=== PATIENT | female | born 1950 | race Two or more races ===

== ENCOUNTER 2017-08-01 09:29 | Inpatient (IN) | payer MEDICARE, OTHER ==
[~2017-08-01] VITALS: Ht 165.1 cm; Wt 67.1 kg
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
--- NOTE | 2017-08-01 09:56 | NUR ---
CALL FROM ROCK AREVALO,[phone]
[2017-08-01] MEDS ORDERED: IV NS 0.9% 1,000 ML BAG IV ONE (10:00)
[2017-08-01 10:02] LABS: BASOPHILS % (AUTO) 0.8 % (0.0-2.0); EOSINOPHILS % (AUTO) 1.8 % (0.0-6.0); HEMATOCRIT 42 % (33-45); HEMOGLOBIN 14.2 g/dL (11.5-14.8); LYMPHOCYTES # (AUTO) 2.1 /CMM (0.8-4.8); LYMPHOCYTES % (AUTO) 37.7 % (20.0-44.0); MEAN CORPUSCULAR HGB CONC 34 g/dl (31.0-36.0); MEAN CORPUSCULAR VOLUME 89 fL (82-100); MONOCYTES # (AUTO) 0.3 /CMM (0.1-1.30); MONOCYTES % (AUTO) 6.2 % (2.0-12.0); NEUTROPHILS # (AUTO) 3.1 /CMM (1.8-8.9); NEUTROPHILS % (AUTO) 53.5 % (43.0-81.0); PLATELET COUNT (AUTO) 238 /CMM (150-450); RDW COEFFICIENT OF VARIATION 13.1 (11.5-15.0); RED BLOOD CELL COUNT(AUTO) 4.76 MIL/uL (4.0-5.2); WHITE BLOOD COUNT (AUTO) 5.6 K/uL (4.3-11.0)
--- NOTE | 2017-08-01 10:04 | NUR ---
ROCK ,ROOMMATE, CALLED, LAST SEEN NORMAL AT 1600 YESTERDAY, STS HE HEARD KNOCKING ON THE WALL AT 0800 AND WHEN HE WENT TO CHECK, SHE WAS ON THE FLOOR. WHEN HE ASKED HER IF HE SHOULD CALL 911, SHE WAS STILL ABLE TO SAY NO THUS HE WAITED HE SAID THINKING SHE WOULD GET BETTER.
[2017-08-01 10:13] LABS: CALCIUM, SERUM 8.6 mg/dL (8.5-10.1); CARBON DIOXIDE 25 mmol/L (21-32); CHLORIDE 103 mmol/L (98-107); CREATININE 0.8 mg/dL (0.6-1.3); GLUCOSE 99 mg/dL (74-106); POTASSIUM 3.8 mmol/L (3.5-5.1); SODIUM SERUM 137 mmol/L (136-145); UREA NITROGEN, BLOOD 10 mg/dL (7-18)
[2017-08-01 10:16] LABS: INR 0.85 (0.85-1.15)
[2017-08-01 10:19] LABS: ACETAMINOPHEN 0 ug/ml (10-30); ALANINE AMINOTRANSFERASE 30 U/L (12-78); ALBUMIN 3.8 g/dL (3.4-5.0); ALCOHOL, BLOOD < 3 mg/dL (0-0); ASPARTATE AMINOTRANSFERASE 24 U/L (15-37); BILIRUBIN,DIRECT 0.2 mg/dL (0.0-0.2); BILIRUBIN,TOTAL 0.6 mg/dL (0.2-1.0); SALICYLATE 0.7 mg/dL (2.8-20.0); TOTAL PROTEIN, SERUM 8.1 g/dL (6.4-8.2)
[2017-08-01] MEDS ORDERED: ONDANSETRON HCL/PF 4 MG/2 ML VIAL ONE (10:20)
--- NOTE | 2017-08-01 10:20 | NUR ---
PATIENT VOMITED AT BS, ER MD MADE AWARE. IVP ZOFRAN 4MG GIVEN PER DR LUCIA ORDER (VERBAL ORDER)
--- NOTE | 2017-08-01 10:21 | NUR ---
PATIENT TRANSPORTED FOR CT HEAD.
[2017-08-01 10:28] LABS: APPEARANCE,URINE Clear (CLEAR); BILIRUBIN,URINE Negative (NEGATIVE); BLOOD, URINE Trace-lysed Ery/uL (NEGATIVE); COLOR,URINE Yellow (YELLOW); KETONES,URINE Negative (NEGATIVE); LEUKOCYTE ESTERASE ,URINE Negative (NEGATIVE); NITRITE, URINE Negative (NEGATIVE); PH,URINE 8.5 (5.0-8.0); PROTEIN,URINE Negative (NEGATIVE); UGLUCOSE Negative (NEGATIVE); UROBILINOGEN,URINE 0.2 EU/dL (0.2)
[2017-08-01] MEDS ORDERED: MIDAZOLAM HCL 2 MG/2ML VIAL ONE (10:28)
[2017-08-01 10:34] LABS: SERUM AMMONIA < 10 umol/L (11-32)
[2017-08-01 10:35] LABS: THYROID STIMULATING HORMONE 2.916 uIU/mL (0.358-3.74)
[2017-08-01 10:40] LABS: BACTERIA,URINE Rare /HPF (None Seen); RBC,URINE 0-2 /HPF (0-2); SQUAMOUS EPITHELIAL CELL,UR Rare /HPF (None Seen); WBC,URINE 0-2 /HPF (0-3)
--- NOTE | 2017-08-01 10:45 | NUR ---
PATIENT IS BACK FROM [facility]IA [place].
[2017-08-01 10:50] LABS: ALKALINE PHOSPHATASE 85 U/L (46-116)
[2017-08-01] MEDS ORDERED: ONDANSETRON HCL/PF 4 MG/2 ML VIAL IV ONE (11:00)
[2017-08-01] MEDS ORDERED: MIDAZOLAM HCL 2 MG/2ML VIAL IV ONE (11:00)
--- NOTE | 2017-08-01 11:05 | NUR ---
PATIENT IS MORE AWAKE BUT CAN'T RECALL ANYTHING. DR LUCIA MADE AWARE.
--- NOTE | 2017-08-01 11:28 | NUR ---
CALLED [employer] HOUSE SITTER WAS PAGED.
--- NOTE | 2017-08-01 12:14 | NUR ---
TEXTED DR. SOLOMON FOR MRI APPROVAL.
--- NOTE | 2017-08-01 12:15 | NUR ---
TEXTED BACK. ON HOLD FOR NOW ,HE WILL LET US KNOW.
--- NOTE | 2017-08-01 12:33 | NUR ---
REPORT GIVEN TO BART NORTON FOR [facility] TELE [phone]
--- NOTE | 2017-08-01 12:40 | NUR ---
DR CAMPA CALLED, ON THE PHONE WITH DR HOLLIDAY
--- NOTE | 2017-08-01 12:44 | NUR ---
CX MRI PER DR. SOLOMON
[2017-08-01] MEDS ORDERED: CETI-102 PO (12:59)
[2017-08-01] MEDS ORDERED: CHLO25TA2 PO (12:59)
[2017-08-01] MEDS ORDERED: OMEP40CA37 PO (12:59)
[2017-08-01] MEDS ORDERED: DICL75TA5 PO (12:59)
[2017-08-01] MEDS ORDERED: LACO200T2 PO (12:59)
[2017-08-01] MEDS ORDERED: AMLO10TA6 PO (12:59)
[2017-08-01] MEDS ORDERED: LAMO100T PO (12:59)
[2017-08-01] MEDS ORDERED: PANT40TA4 PO (12:59)
--- NOTE | 2017-08-01 13:15 | NUR ---
MS RN ADMITTING NOTES Patient arrived on MS-3W unit AAOx3, breathing on RA with no SOB or any signs/Sx of acute distress. Patient still complains of dizziness, but is otherwise resting comfortably in bed. Vital signs WNL. Peripheral IV 20g in left wrist. Patient on tele-monitor in NSR. Provided patient with orientation to room and unit. Patient has son at bedside. Bed is in low/locked position, two side rails up, call coffman within reach. Will continue to monitor.
[2017-08-01] MEDS ORDERED: MAGNESIUM HYDROXIDE 30 ML UDC PO PRN (14:00)
[2017-08-01] MEDS ORDERED: ONDANSETRON HCL/PF 4 MG/2 ML VIAL IVP PRN (14:00)
[2017-08-01] MEDS ORDERED: Z GUARD REMEDY 2 OZ OINT TP PRN (14:00)
[2017-08-01] MEDS ORDERED: MAG HYDROX/AL HYDROX/SIMETH 30 ML UDC PO PRN (14:00)
--- NOTE | 2017-08-01 14:00 | NUR ---
MS RN NOTE Patient seen by Dr. Gupta at bedside. Evaluated, orders noted and carried out.
[2017-08-01] MEDS: ACETAMINOPHEN 325 MG TABLET PO PRN (15:15)
[2017-08-01 16:00] VITALS: BP 122/75
[2017-08-01] MEDS: LamoTRIgine 100 MG TABLET PO SCH (17:15)
--- NOTE | 2017-08-01 18:17 | NUR ---
MS RN CLOSING NOTES Patient is resting comfortably in bed, breathing on RA, in no acute distress. Patient remains AAOx4. Vital signs WNL. Will check orthostatic BP as needed per Dr. Gupta. Marie catheter was seen leaking, and patient asked for it to be removed; obtained order for FC removal and removed before end of shift. Total output during shift was 3000 ml. Bedside commode next to patient. All patient needs and physician orders carried out. Patient care to be endorsed to shift mgr nurse.
--- NOTE | 2017-08-01 19:20 | NUR ---
SPECIAL SERVICES SUPERVISOR OPENING NOTES RECEIVED PT LAYING IN BED WITH HOB ELEVATED. ALERT, AWAKE AND RESPONSIVE. RESPIRATIONS ARE EVEN AND UNLABORED, NOT IN ANY ACUTE DISTRESS NOTED. DENIES ANY SOB, CHEST PAIN, N/V. IV SITE INTACT, NO INFILTRATION NOTED. DRESSING KEPT CLEAN AND DRY. SAFETY MEASURES ARE IN PLACE. INSTRUCTED PT TO USE CALL LIGHT WHEN ASSISTANCE IS NEEDED, CALL LIGHT IS LEFT WITHIN REACH. WILL CONTINUE TO MONITOR THROUGHOUT SHIFT FOR CONTINUITY OF CARE.
[2017-08-01 20:00] VITALS: BP 138/74
[2017-08-01] MEDS: ZOLPIDEM TARTRATE 5 MG TABLET PO PRN (20:51)
[2017-08-02] VITALS: BP 108/69
[2017-08-02] MEDS: ACETAMINOPHEN 325 MG TABLET PO PRN (02:46)
[2017-08-02 04:00] VITALS: BP 123/73
[2017-08-02 06:38] LABS: BASOPHILS % (AUTO) 0.7 % (0.0-2.0); EOSINOPHILS % (AUTO) 3.5 % (0.0-6.0); HEMATOCRIT 39 % (33-45); HEMOGLOBIN 13.1 g/dL (11.5-14.8); LYMPHOCYTES # (AUTO) 2.8 /CMM (0.8-4.8); LYMPHOCYTES % (AUTO) 49.7 % (20.0-44.0); MEAN CORPUSCULAR HGB CONC 34 g/dl (31.0-36.0); MEAN CORPUSCULAR VOLUME 89 fL (82-100); MONOCYTES # (AUTO) 0.4 /CMM (0.1-1.30); MONOCYTES % (AUTO) 6.7 % (2.0-12.0); NEUTROPHILS # (AUTO) 2.2 /CMM (1.8-8.9); NEUTROPHILS % (AUTO) 39.4 % (43.0-81.0); PLATELET COUNT (AUTO) 246 /CMM (150-450); RDW COEFFICIENT OF VARIATION 14.4 (11.5-15.0); RED BLOOD CELL COUNT(AUTO) 4.31 MIL/uL (4.0-5.2); WHITE BLOOD COUNT (AUTO) 5.7 K/uL (4.3-11.0)
[2017-08-02 06:46] LABS: CALCIUM, SERUM 8.3 mg/dL (8.5-10.1); CREATININE 0.7 mg/dL (0.6-1.3); MAGNESIUM 2.3 mg/dL (1.8-2.4); PHOSPHORUS 3.7 mg/dL (2.5-4.9); POTASSIUM 3.8 mmol/L (3.5-5.1)
--- NOTE | 2017-08-02 06:55 | NUR ---
FIRE SAFETY INSPECTOR CLOSING NOTES ALL DUE MEDS GIVEN, NEEDS MET AND RENDERED. AWAKE AND RESPONSIVE. RESPIRATIONS ARE EVEN AND UNLABORED, NOT IN ANY ACUTE DISTRESS NOTED. DENIES ANY PAIN, SOB, N/V. IV SITE INTACT, NO INFILTRATION NOTED. DRESSING KEPT CLEAN AND DRY. SAFETY MEASURES ARE IN PLACE. REMINDED PT TO USE CALL LIGHT WHEN ASSISTANCE IS NEEDED, CALL LIGHT IS LEFT WITHIN REACH. WILL ENDORSE TO NEXT SHIFT FOR CONTINUITY OF CARE.
--- NOTE | 2017-08-02 07:00 | NUR ---
REPORT RECEIVED AT THE BEDSIDE. PATIENT IS RESTING COMFORTABLY IN BED. NO SOB OR DISTRESS NOTED AT THIS TIME. PATIENT DENIES PAIN. BED IN A LOW POSITION, CALL LIGHT WITHIN REACH, FAMILY IS AT THE BEDSIDE. WILL MONITOR. Addendum: 08/02/17 at 0749 by KELLEE RAHMAN RN HEART RATE SR AT 65
[2017-08-02 08:00] VITALS: BP 114/79
[2017-08-02] MEDS: PANTOPRAZOLE 40 MG TABLET.DR PO SCH (08:08)
[2017-08-02] MEDS: cetrizine 10 MG TABLET PO SCH (08:08)
[2017-08-02] MEDS: LamoTRIgine 100 MG TABLET PO SCH ×2 (08:08→16:07)
[2017-08-02] MEDS: AMLODIPINE BESYLATE 10 MG TABLET PO SCH (08:08)
--- NOTE | 2017-08-02 08:41 | NUR ---
DR CORTEZ ON FLOOR. INFORMED MD THAT ONLY A PARTIAL MED REC HAD BEEN DONE FOR THE PATIENT. DANA STATES TO LET KATHERYN MAKE THE DECISION TO CONTINUE SEIZURE MEDICATIONS. WILL INFORM MD WHEN SEEN.
[2017-08-02 10:10] VITALS: BP_SYST 108; BP_SYST 118; BP_DIAS 56; BP_DIAS 72
--- NOTE | 2017-08-02 10:56 | NUR ---
COLLECTED PT HOME MEDICATIONS AND BROUGHT THEM TO THE PHARMACY. PT SIGNED AND RECEIPT PLACED IN THE CHART.
[2017-08-02] MEDS: Chlorthalidone 25 MG PO SCH (11:03)
--- NOTE | 2017-08-02 11:03 | NUR ---
PT STATES TOOK CHLORTALIDONE AND VIMPAT THIS MORNING.
[2017-08-02] MEDS: LACOSAMIDE 50 MG TABLET PO SCH (11:16)
[2017-08-02 16:00] VITALS: BP 118/83
[2017-08-02] MEDS: DICLOFENAC SODIUM 25 MG TABLET.DR PO SCH (16:07)
[2017-08-02] MEDS: HYDROCODONE/APAP 5/325MG 1 EACH TABLET PO PRN ×2 (16:08→21:09)
--- NOTE | 2017-08-02 19:05 | NUR ---
MS RN OPENING NOTES: RECEIVED PT IN BED AND IS AWAKE AT THIS TIME. PT LAYING IN BED AND IS A/OX4. PT REQUESTED TO HAVE NORCO AROUND 2100 SINCE SHE IS HAVING A MIGRAINE. PT HAS IV ON L WRIST #20G AND IS PATENT AND INTACT. CURRENTLY S/L. CALL LIGHT WITHIN PT'S REACH. BED KEPT IN LOW, LOCKED POSITION, AND SIDE RAILS X 2UP. WILL CONTINUE TO MONITOR PT.
[2017-08-02 20:00] VITALS: BP 102/56
--- NOTE | 2017-08-02 21:11 | NUR ---
MS ARRIAGA NOTES: PT'S MEDICATIONS WERE AT BEDSIDE. EXPLAINED TO PT THAT SINCE SHE IS IN THE HOSPITAL. IT HAS TO BE COLLECTED AND DISTRIBUTED BACK TO HER UPON DISCHARGE. Addendum: 08/02/17 at 2112 by RICHIE MCCORMACK RN PT UNDERSTOOD.
--- NOTE | 2017-08-02 21:31 | NUR ---
MS RN NOTES: PT'S MEDS COLLECTED. PT SIGNED.
[2017-08-02] MEDS: ZOLPIDEM TARTRATE 5 MG TABLET PO PRN (22:50)
--- NOTE | 2017-08-02 22:51 | NUR ---
MS RN NOTES: PT SAID THAT SHE IS UNABLE TO SLEEP. PT REQUESTED FOR SLEEP AID. PT WAS ADMINISTERED. AMBIEN 5MG PO.
[2017-08-03 06:10] VITALS: BP_SYST 116; BP_SYST 120; BP_SYST 122; BP_DIAS 79; BP_DIAS 80; BP_DIAS 89
--- NOTE | 2017-08-03 06:30 | NUR ---
MS RN CLOSING NOTES: ALL NEEDS WERE ATTENDED AND ANTICIPATED FOR. PT ON ROOM AIR AND TOLERATING WELL. NO S/S OF DISTRESS NOTED AT THIS TIME. IV REMAINS IN TACT AND IS CURRENTLY S/L. CALL LIGHT WITHIN PT'S REACH. BED KEPT IN LOW, LOCKED POSITION, AND SIDE RAILS X 2 UP . WILL ENDORSE TO AM NURSE FOR NATASHA.
[2017-08-03] MEDS ORDERED: Medication Not On Formulary EA (Omeprazole 40 MG) PO SCH (07:30)
[2017-08-03 08:00] VITALS: BP 115/64
--- NOTE | 2017-08-03 08:00 | NUR ---
MS RN OPENING NOTES Patient seen sitting upright with legs dangling over bedside, AAOx4, breathing comfortably on RA sat 98%, no signs of acute distress. Bed in low/locked position, call coffman within reach. Will continue to monitor.
[2017-08-03] MEDS: LamoTRIgine 100 MG TABLET PO SCH (08:27)
[2017-08-03] MEDS: PANTOPRAZOLE 40 MG TABLET.DR PO SCH (08:27)
[2017-08-03] MEDS: Chlorthalidone 25 MG PO SCH (08:27)
[2017-08-03] MEDS: cetrizine 10 MG TABLET PO SCH (08:27)
[2017-08-03] MEDS: LACOSAMIDE 50 MG TABLET PO SCH (08:27)
[2017-08-03 08:31] VITALS: BP 115/64
[2017-08-03] MEDS: AMLODIPINE BESYLATE 10 MG TABLET PO SCH (08:31)
[2017-08-03] MEDS: DICLOFENAC SODIUM 25 MG TABLET.DR PO SCH (08:33)
--- NOTE | 2017-08-03 14:47 | NUR ---
MS RN NOTES - PATIENT DISCHARGED Patient discharged in stable condition, AAOx4, vital signs WNL, no signs or symptoms of acute distress. Patient has all of her belongings, including all home medications. Patient signed the Belongings List and discharge forms. Discharge education provided directly to patient in patient's primary language (Telugu), patient verbalized understanding. All discharge paperwork given to patient. Patient will follow-up with PCP and Neurologist within one-two weeks. MD aware of all abnormal labs. Patient was picked up by her neighbor using a private car; patient discharged to home.
== END 2017-08-03 15:10 | disposition home or self-care (01) | DRG 640 ==
LOC: ER 09:32 → TELE 12:46 → MED 08-02 10:47
PROVIDERS: ADMIT Family Medicine; ATTEND Family Medicine
DX: E86.0 Dehydration (principal); G93.40 Encephalopathy, unspecified; R55 Syncope and collapse; F32.9 Major depressive disorder, single episode, unspecified; G40.909 Epilepsy, unspecified, not intractable, without status epilepticus; F41.9 Anxiety disorder, unspecified; I10 Essential (primary) hypertension; Z90.710 Acquired absence of both cervix and uterus; Z79.899 Other long term (current) drug therapy; Z82.49 Family history of ischemic heart disease and other diseases of the circulatory system; I67.2 Cerebral atherosclerosis
CPT/HCPCS: 36415; 70450-TC; 71045-TC; 72125-TC; 80048-TC; 80061-TC; 80076-TC; 80305; 81000-TC; 82140-TC; 82962-TC; 83605-TC; 83735-TC; 84100-TC; 84443-TC; 84484-TC; 85025-TC; 85730-TC; 87081-TC; A4606; G0480; J2250; J2405; J7030; Z7610

== ENCOUNTER 2017-08-07 12:32 | Outpatient (CLI) | payer MEDICARE, OTHER ==
[~2017-08-07 12:32] MED LIST: AMLO10TA6 PO; CETI-102 PO; CHLO25TA2 PO; DICL75TA5 PO; LACO200T2 PO; LAMO100T PO; OMEP40CA37 PO; PANT40TA4 PO
[2017-08-07 12:42] VITALS: BP 147/103
== END 2017-08-07 23:59 | disposition home or self-care (01) ==
LOC: MSC 12:32
PROVIDERS: ATTEND Internal Medicine
DX: I10 Essential (primary) hypertension (principal); G40.909 Epilepsy, unspecified, not intractable, without status epilepticus; F41.8 Other specified anxiety disorders

== ENCOUNTER 2020-09-05 10:07 | Emergency (ER) | payer MEDICARE, MEDICAID ==
[~2020-09-05] VITALS: Ht 162.6 cm; Wt 72.1 kg
[~2020-09-05 10:07] MED LIST changes: +AMLO-213 PO; -AMLO10TA6 PO; -CETI-102 PO; +CETI-90 PO; -LAMO100T PO; +LAMO100T17 PO; +OMEP40CA13 PO; -OMEP40CA37 PO; -PANT40TA4 PO; +PANT40TA49 PO
[2020-09-05] MEDS ORDERED: ONDANSETRON HCL/PF 4 MG/2 ML VIAL ONE (10:14)
[2020-09-05] MEDS ORDERED: LORAZEPAM INJ 2 MG/ML VIAL ONE (10:15)
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
[2020-09-05] MEDS ORDERED: FAMO20TA8 PO (10:21)
[2020-09-05] MEDS: ONDANSETRON HCL/PF - ER 4 MG/2 ML VIAL IM ONE (10:21)
[2020-09-05] MEDS ORDERED: LISI40TA13 PO (10:21)
[2020-09-05] MEDS ORDERED: MIRT15TA7 PO (10:21)
[2020-09-05] MEDS ORDERED: CARV3.122 PO (10:21)
[2020-09-05] MEDS: LORAZEPAM INJ 2 MG/ML VIAL IM ONE (10:21)
--- NOTE | 2020-09-05 10:51 | NUR ---
PATIENT MOANING, CRYING, W/ EPISODES OF DRY HEAVES
--- NOTE | 2020-09-05 12:02 | NUR ---
Christo called for update and will again later when pt awake
--- NOTE | 2020-09-05 12:17 | NUR ---
TECH AT BEDSIDE FOR EKG
--- NOTE | 2020-09-05 13:56 | NUR ---
CALLED AND LVM FOR PT SON [phone]
--- NOTE | 2020-09-05 14:05 | NUR ---
UNABLE TO GET A HOLD FAMILY TO HAVE PT PICKED UP. NO NUMBER WAS TAKEN FROM [facility]LI[facility] BUT HE WILL BE CALLING BACK. PT MARKED FOR D/C BUT PT IS DROWSY.
--- NOTE | 2020-09-05 15:15 | NUR ---
CALLED ROOMMATE DIDI [phone]. HE CAN PICK PT AFTER 30 MIN
--- NOTE | 2020-09-05 16:12 | NUR ---
Patient discharged to home in stable condition under the care of his room mate. Written and verbal after care instructions given. Patient verbalizes understanding of instruction. Pt was assisted to the car on wheelchair
[2020-09-05 16:13] VITALS: BP 143/89
== END 2020-09-05 16:14 | disposition home or self-care (01) ==
LOC: ER 13:29
DX: F44.9 Dissociative and conversion disorder, unspecified (principal); I10 Essential (primary) hypertension; F41.9 Anxiety disorder, unspecified; Z98.890 Other specified postprocedural states; Z79.899 Other long term (current) drug therapy
CPT/HCPCS: 93005; 96372 ×2; 99284; J2060; J2405 ×2